=== PATIENT | female | born 1960 | race Caucasian/White ===

== ENCOUNTER 2018-09-23 11:00 | Emergency (ER) | payer OTHER ==
[2018-09-23] MEDS ORDERED: HYDROmorphONE/DILAUDID 2 MG/ML INJ IVP ONE ×3 (11:14→12:06)
--- NOTE | 2018-09-23 11:17 | EDPHY ---
H & P Stated Complaint: PT. sent from GI. Pt. with epigastric to left abd rosario to CP, Time Seen by Provider: 09/23/18 11:10 HPI/ROS: CHIEF COMPLAINT: Left-sided back and flank pain History by patient HISTORY OF PRESENT ILLNESS: 57-year-old woman with history of hypertension, sleep apnea for which he uses CPAP and oxygen at night, and chronic pain is referred from GI clinic upstairs because of severe persistent left-sided pleuritic pain since she woke from her routine colonoscopy. Patient was sedated with propofol for the procedure and according to Dr. Cook who called me about the patient, the procedure was uncomplicated. There were 2 polyps removed and biopsied. She passed gas after the procedure. Patient states she awoke with severe pain on her left side radiating to her back which is worse with inspiration. Patient does normally take morphine for chronic pain in her joints and back but did not take this this morning because of her procedure.. REVIEW OF SYSTEMS: As in HPI, and all other systems reviewed and are negative Source: Patient, RN/MD - Physical Exam Exam: General Appearance: Alert, obese, comfortable appearing, hyperventilating. Eyes: Pupils equal and round, extraocular movements intact, no pallor or injection. Mouth: Mucous membranes moist. Pharynx clear Respiratory: Normal, effort, lungs are clear to auscultation and equal bilaterally. No wheezes, rales or rhonchi. Cardiovascular: Regular rate and rhythm. S1, S2, no murmurs, gallops or rubs appreciated Gastrointestinal: bowel sounds present, Abdomen is soft and mildly diffusely tender, no masses Back: No CVA tenderness, no bony tenderness Neurological: Awake, alert and oriented x 3, no pronator drift, normal gait, no pronator drift Skin: Warm and dry, no rashes. Musculoskeletal: No deformities or tenderness. Extremities: full range of motion, no edema Psychiatric: Patient has normal affect, there is no agitation. Constitutional: Initial Vital Signs Temperature (C) 36.6 C 09/23/18 11:06 Heart Rate 79 09/23/18 11:06 Respiratory Rate 16 09/23/18 11:06 Blood Pressure 166/99 H 09/23/18 11:06 O2 Sat (%) 94 09/23/18 11:06 O2 Delivery Mode Room Air Allergies/Adverse Reactions: morphine Allergy (Intermediate, Verified 09/23/18 11:13) beligerent Medical Decision Making - Diagnostics Imaging Results: Imaging Impressions Chest X-Ray 09/23/18 11:20 Impression: Negative chest. Patchy bilateral lower lobe atelectasis. Imaging: I viewed and interpreted images myself ED Course/Re-evaluation: 57-year-old woman referred from GI lab for left-sided pleuritic pain after colonoscopy. Here patient's abdomen is soft and her vital signs are stable. She was given Dilaudid 0.5 mg x2 with improvement. Upright chest x-ray showed no evidence of free air but there was noted to have large air in the colon. On re-evaluation patient was feeling somewhat better. Dr. Cook came and evaluated the patient in the ER and requested abdominal series x-rays also which were done and also showed distended colon but no free air. Patient was ambulatory was able to sit up in a chair was feeling better and desired to go home. I discussed again with Dr. Cook. We agreed the patient could be safely discharged home with return precautions at this time. - Data Points Laboratory Results: 09/23/18 11:26 POC Sodium 141 mEq/L mEq/L (135-145) POC Potassium 3.9 mEq/L mEq/L (3.3-5.0) POC Chloride 97.0 mEq/L mEq/L (97-110) POC Total CO2 32 mEq/L H mEq/L (22-31) POC BUN 9 mg/dL mg/dL (7-23) POC Creatinine 0.8 mg/dL mg/dL (0.6-1.0) POC Glucose 106 mg/dL H mg/dL (70-100) POC Calcium 9.3 mg/dL mg/dL (8.5-10.4) Medications Given: Discontinued Medications Hydromorphone HCl (Dilaudid) 0.5 mg IVP EDNOW ONE Stop: 09/23/18 11:15 Last Admin: 09/23/18 11:24 Dose: 0.5 mg Hydromorphone HCl (Dilaudid) 0.5 mg IVP EDNOW ONE Stop: 09/23/18 11:27 Last Admin: 09/23/18 11:30 Dose: 0.5 mg Hydromorphone HCl (Dilaudid) 1 mg IVP EDNOW ONE Stop: 09/23/18 12:07 Last Admin: 09/23/18 12:14 Dose: 1 mg Point of Care Test Results: CBC CBC Collection Date 09/23/18 CBC Collection Time 11:25 WBC 8.35 RBC 5.52 HGB 16.1 HCT 48.9 PLT 238 Neut # 5.20 Neut 62.3 LYMPH # 2.39 LYMPH 28.6 MCV 88.6 Chemistry 09/23/18 11:26 POC Sodium 141 mEq/L mEq/L (135-145) POC Potassium 3.9 mEq/L mEq/L (3.3-5.0) POC Chloride 97.0 mEq/L mEq/L (97-110) POC Total CO2 32 mEq/L H mEq/L (22-31) POC BUN 9 mg/dL mg/dL (7-23) POC Creatinine 0.8 mg/dL mg/dL (0.6-1.0) POC Glucose 106 mg/dL H mg/dL (70-100) POC Calcium 9.3 mg/dL mg/dL (8.5-10.4) Departure - Departure Disposition: Home, Routine, Self-Care Clinical Impression: Flank pain, acute Condition: Fair Instructions: Acute Abdominal Pain (ED) Additional Instructions: You were seen by Dr. Olga Lidia Feliz today. Your x-ray showed no evidence of free air/perforation from her colonoscopy. Return immediately if he develop worsening pain, vomiting, inability to take oral food or fluids, fever or other worsening. Return for any worsening or new concerns.
[2018-09-23 20:49] VITALS: BP 123/80
== END 2018-09-23 13:42 | disposition home or self-care (01) ==
LOC: CED 11:00
DX: R10.9 Unspecified abdominal pain (principal); M54.9 Dorsalgia, unspecified; G89.29 Other chronic pain; I10 Essential (primary) hypertension; G47.30 Sleep apnea, unspecified; Z98.890 Other specified postprocedural states
CPT/HCPCS: 71046; 74019; 96374; 99284; J1170; 80048-ER; 85025-QW-ER